=== PATIENT | male | born 1940 | race Asian ===

== ENCOUNTER 2017-10-12 00:10 | Emergency (ER) | payer OTHER, MEDICARE ==
[~2017-10-12] VITALS: Ht 170.2 cm; Wt 79.4 kg
--- NOTE | 2017-10-12 00:19 | ED UPPER/LOWER EXTREMITY COMPL ---
History of Present Illness General Chief Complaint: Animal/Insect Bite Stated Complaint: PT BITE BY DOG TO RT HAND Source: patient Exam Limitations: no limitations Vital Signs & Intake/Output Vital Signs & Intake/Output Vital Signs Date Time Temp Pulse Resp B/P B/P Pulse O2 O2 Flow FiO2 Mean Ox Delivery Rate 10/12 0025 Room Air 10/12 0022 97.7 86 18 116/55 97 Room Air Allergies Coded Allergies: No Known Allergies (10/12/17) Reconcile Medications Amoxicillin/Potassium Clav (Augmentin 875-125 Tablet) 875 MG-125 MG TABLET 1 TAB PO BID DOG BITE Triage Nurses Notes Reviewed? yes Onset: Abrupt Duration: hour(s): Timing: recent history Severity: moderate Pain/Injury Location: Right: Hand. Method of Injury: dog bite Modifying Factors: Improves With: rest. Associated Symptoms: pain HPI: 77 yo gentleman presents after a family dog bite to right hand. The dog's vaccines are up to date and was behaving normally. Per the patient, "it was my fault." He notes a laceration on the right thenar eminence, with minimal bleeding. He is able to move his fingers without problem. He has no change in sensation. He is otherwise well. Past History Travel History Traveled to [place] past 21 day No Medical History Any Pertinent Medical History? see below for history Cardiovascular: CAD, hypertension, hyperlipidemia Gastrointestinal: GERD Surgical History Surgical History: non-contributory Family History Hx Contributory? No Review of Systems Review of Systems Constitutional: Reports: no symptoms. EENTM: Reports: no symptoms. Respiratory: Reports: no symptoms. Cardiovascular: Reports: no symptoms. Gastrointestinal/Abdominal: Reports: no symptoms. Genitourinary: Reports: no symptoms. Musculoskeletal: Reports: no symptoms. Skin: Reports: no symptoms. Neurological/Psychological: Reports: no symptoms. Hematologic/Endocrine: Reports: no symptoms. Immunological: Reports: no symptoms. All Other Systems: Reviewed and Negative Physical Exam Physical Exam General Appearance: well developed/nourished, mild distress Head: atraumatic Eyes: Bilateral: normal appearance. Ears, Nose, Throat: normal pharynx, normal ENT inspection, hearing grossly normal Neck: normal inspection, supple Back: normal inspection Hand Right: 3CM WELL APPROXIMATED LACERATION ON THENAR EMINENCE, ROM and strength is normal in hand/wrist/fingers. light touch intact. Skin: intact, normal color, warm/dry Lymphatic: no anterior cervical ursula Progress Differential Diagnosis: laceration vs dog bite vs other. Plan of Care: Current Medications Sig/[place] Start time Last Medication Dose Stop Time Status Admin Amoxicillin/ 1,000 MG ONCE ONE 10/12 44 UNVr Clavulanate Potassium 10/12 45 (Augmentin) Ibuprofen 800 MG ONCE ONE 10/12 44 UNVr (Motrin) 10/12 45 Tetanus/Diphtheria 0.5 ML ONCE ONE 10/12 44 UNVr Toxoids Adsorbed 10/12 45 (Decavac) Departure Departure Disposition: HOME OR SELF CARE Condition: Stable Clinical Impression Primary Impression: Dog bite Secondary Impressions: Laceration Departure Forms: Customer Survey General Discharge Information Prescriptions: Current Visit Scripts Amoxicillin/Potassium Clav (Augmentin 875-125 Tablet) 1 TAB PO BID #14 TAB Comments discussed at length... pt to follow up tomorrow for wound check... dt and augmentin given. close follow up advised. Procedures Laceration/Wound Repair Laceration/Wound Repair: Wound Location: right palm Wound's Depth, Shape: linear Wound Length (cm): 3 Wound Explored: clean, no foreign body removed Irrigated w/ Saline (ccs): 400 Betadine Prep? Yes Anesthesia: 1% lidocaine Volume Anesthetic (ccs): 3 Wound Repaired With: sutures Suture Size/Type: 4:0, proline Number of Sutures: 2 Date of Last Tetanus: 10/12/17 Tetanus Status: up to date Progress: pt given augmentin prophylaxis wound check in 1 day sutures out in 7 days
[2017-10-12 00:22] VITALS: BP 116/55
[2017-10-12] MEDS ORDERED: AUGMENTIN 875-1 EACH PO (00:38)
[2017-10-12] MEDS ORDERED: METOPROLOL SUCC25 M1 PO (01:25)
== END 2017-10-12 01:25 ==
LOC: ERH 00:10
DX: S61.411A Laceration without foreign body of right hand, initial encounter (principal); I10 Essential (primary) hypertension; W54.0XXA Bitten by dog, initial encounter
CPT/HCPCS: 90471; 90714; J2001; J3490